=== PATIENT | female | born 1970 | race Caucasian/White ===

== ENCOUNTER 2023-11-11 05:39 | Emergency (ER) | payer MEDICARE, SELFPAY ==
[2023-11-11 05:42] VITALS: BP 120/76; PULSE 100; RESP 16; O2SAT 97; BMI 24.7
[2023-11-11 05:50] VITALS: TEMP 36.8
--- NOTE | 2023-11-11 06:07 | XRR_ITS ---
PROCEDURE INFORMATION: Exam: XR Chest Exam date and time: 11/11/2023 6:11 AM Age: 52 years old Clinical indication: Cough and shortness of breath; Patient HX: Cough with SOB; Additional info: Dyspnea/cough TECHNIQUE: Imaging protocol: Radiologic exam of the chest. Views: 1 view. COMPARISON: No relevant prior studies available. FINDINGS: Lungs: Minimal scarring or infiltrate in the right upper lobe. Pleural spaces: Unremarkable. No pleural effusion. No pneumothorax. Heart/Mediastinum: Unremarkable. No cardiomegaly. Bones/joints: Unremarkable. XR/XR chest 1V portable [id number] IMPRESSION: Minimal opacity in the right upper lobe.
--- NOTE | 2023-11-11 06:08 | W.ED.GENADLT ---
HPI - General Adult General: Chief complaint: General Medical Stated complaint: FIT FOR CONFINEMENT Time Seen by Provider: 11/11/23 05:46 Source: patient Mode of arrival: other (Law enforcement) History of Present Illness: 52-year-old female with history of sarcoidosis presents emergency room in custody for fit for confinement. Patient has a history of sarcoidosis rheumatoid arthritis that she is on methotrexate and as needed steroids. She uses albuterol nebs several times a day. She states she has as needed oxygen. No recent fever sweats or chills. No recent illness nonproductive chronic cough. No chest pain. Associated symptoms: Reports cough (Chronic) and dyspnea; Deny chest pain, confusion, diaphoresis, decreased appetite, fevers/chills, headache(s), malaise, nausea, rash, palpitations, seizures, short of breath, syncope, vomiting or weakness Review of Systems Const: Denies: malaise or diaphoresis Card: Denies: chest pain, palpitations or syncope Resp: Reports: dyspnea, non-productive cough and wheezing GI: Denies: nausea or vomiting : Denies: dysuria, urinary frequency or urinary urgency Musc: Denies: neck pain or back pain Skin/Breast: Denies: rash Neuro: Denies: headache(s) or confusion PFSH ED PFSH: Medical History (Updated 11/11/23 @ 07:42 by Ranjeet Camarena DO) Rheumatoid arthritis Sarcoidosis Physical Exam Const: COMMON NORMALS: no acute distress GENERAL APPEARANCE: cooperative and comfortable ORIENTATION/CONSCIOUSNESS: Yes awake, Yes oriented to person, Yes oriented to place and Yes oriented to time HENMT: COMMON NORMALS: normocephalic, atraumatic and hearing grossly normal bilaterally HEAD & SCALP: normocephalic and atraumatic Resp: COMMON NORMALS: normal respiratory effort, No retractions and No use of accessory muscles AUSCULTATION: rhonchi and wheezes Cardio: COMMON NORMALS: regular rate, regular rhythm and No murmurs present (Cardio) RATE: regular rate RHYTHM: regular rhythm GI: COMMON NORMALS: Soft to palpation and No hepatosplenomegaly present AUSCULTATION: Yes normoactive bowel sounds PALPATION: Yes Soft to palpation, No Tenderness to palpation present (GI), No Guarding due to palpation present (GI) and Yes No hepatosplenomegaly present Extremity: COMMON NORMALS: normal to inspection, capillary refill normal, no clubbing, cyanosis or edema, no calf tenderness and no pedal edema Neuro: SENSORIUM/ORIENTATION: Yes oriented to person, Yes oriented to place and Yes oriented to time Skin: OTHER: Multiple bruises on extremities particularly lower extremities appear to be from routine ADLs no pattern to them Course Vital Signs: Vital signs: Vital Signs Temperature 98.3 F 11/11/23 05:50 Pulse Rate 101 H 11/11/23 06:29 Respiratory Rate 18 11/11/23 06:29 Blood Pressure 120/76 11/11/23 05:42 Pulse Oximetry 98 11/11/23 06:29 Oxygen Delivery Me thod Room Air 11/11/23 06:29 MDM - General Adult Medical Decision Making Patient brought in by [facility] for fit for confinement. She does have sarcoidosis and COPD her oxygen sat is normal she is in no respiratory distress at this time. Exam is otherwise unremarkable. She would benefit from a steroid taper to prevent flares and issues while she is incarcerated. Additionally she should have access to albuterol to use every 4 hours as needed gave her an inhaler. We are about to discharge the patient she then added that she had dysuria. She had urinated without collecting a urine sample earlier. Many cath was done. Patient was discharged and we advised the officer we would call with the results of the urine it did come back positive we will start her on Macrobid 1 twice daily for 7 days. Continue her other medications as previously prescribed. Patient not requiring oxygen at this time she can intermittently be tested for her oxygen saturation if she complains of shortness of breath. Lab Data I reviewed the patient's lab results. Radiology Impressions Chest X-Ray 11/11/23 06:07 IMPRESSION: Minimal opacity in the right upper lobe. Laboratory Results Urine Color Yellow (Yellow) 11/11/23 06:57 Urine Appearance Clear (CLEAR) 11/11/23 06:57 Urine pH 5 (5-7) 11/11/23 06:57 Ur Specific [place] 1.020 (1.005-1.030) 11/11/23 06:57 Urine Protein Neg (Negative) 11/11/23 06:57 Urine Glucose (UA) Norm (Normal) 11/11/23 06:57 Urine Ketones 2+ (Negative) H 07/13/24 06:57 Urine Blood Trace (Negative) H 11/11/23 06:57 Urine Nitrate Positive (Negative) A 11/11/23 06:57 Urine Bilirubin Neg (Negative) 11/11/23 06:57 Urine Urobilinogen Norm mg/dL (Negative) 11/11/23 06:57 Ur Leukocyte Esterase Negative (Negative) 11/11/23 06:57 Urine RBC 0-4 /hpf (0-2) H 11/11/23 06:57 Urine WBC 5-10 /hpf (0-5) H 11/11/23 06:57 Ur Squamous Epith Cells None /hpf (0-5) 11/11/23 06:57 Amorphous Sediment Not Reportable 11/11/23 06:57 Urine Bacteria 3+ /hpf (NONE) H 11/11/23 06:57 All radiology interpretation(s) finalized by discharge Discharge Plan Discharge Patient Disposition: Home Clinical Impression: Sarcoidosis, Rheumatoid arthritis, COPD (chronic obstructive pulmonary disease), Cystitis Condition: Stable Prescriptions: New prednisone 20 mg tablet 20 mg PO TID Qty: 15 0RF Rx Instructions: 1 p.o. 3 times daily x3 days, 1 p.o. twice daily x2 days, 1 p.o. daily x2 days albuterol sulfate 90 mcg/actuation HFA aerosol inhaler 2 inh INHALATION Q4H PRN (Reason: shortness of breath or wheezing) Qty: 18 0RF Macrobid 100 mg capsule 100 mg PO BID 7 Days Qty: 14 0RF Rx Instructions: must administer with a meal/food Discharge Orders: Discharge ED (Routine); Ordered 11/11/23 Ordered By: Ranjeet Camarena Patient Instructions: Opioid Safety, Pain Management Activity Restrictions/Additional Instructions: Patient is fit for confinement should be placed on a prednisone taper. The oral prednisone begin tomorrow she was given a dose of IV steroid today. Additionally she should use the albuterol inhaler, 2 puffs every 4 hours as needed. She should continue to take all of her other regular prescribed medications. Monitor oxygen sats at as needed Coding Level of Care Code ED Media Liaison Officer for Gera Sorto
[2023-11-11 06:29] VITALS: PULSE 101; RESP 18; O2SAT 98
[2023-11-11] MEDS: ipratropium-albuterol 3 mL Neb INHALATION (06:31)
[2023-11-11] MEDS: dexamethasone 10 mg/mL INJ IM (07:06)
[2023-11-11 07:17] LABS: Add Urine Microscopic? YES; Bilirubin Urine Neg (Negative); Blood Urine Trace (Negative); Glucose Urine UA Norm (Normal); Ketones Urine 2+ (Negative); Leukocyte Esterase Urine Negative (Negative); Nitrate Urine Positive (Negative); Protein Urine Neg (Negative); Urine Appearance Clear (CLEAR); Urine Color Yellow (Yellow); Urobilinogen Urine Norm (Negative); pH Urine 5 (5-7)
[2023-11-11 07:18] LABS: Add Urine Culture? Yes; Bacteria Urine 3+ /hpf; RBC Urine 0-4 /hpf (0-2)
== END 2023-11-11 07:12 | disposition home or self-care (01) ==
PROVIDERS: Emergency Provider Family Medicine
DX: D86.9 Sarcoidosis, unspecified (principal); M06.9 Rheumatoid arthritis, unspecified; J44.9 Chronic obstructive pulmonary disease, unspecified; N30.90 Cystitis, unspecified without hematuria
CPT/HCPCS: 71045; 81001; 87077; 87086; 87186; 94640; 96372; 99284; J1100